=== PATIENT | female | born 1995 | race Caucasian/White ===

== ENCOUNTER → 2016-10-13 | Outpatient (CLI) | payer BC, MEDICAID ==
[~2016-10-13] MED LIST: HYDR-757 PO
--- NOTE | 2016-10-13 11:01 | Diagnostic Imaging Report ---
First trimester OB ultrasound. INDICATION: Dating. FINDINGS: There is a normal-appearing single intrauterine . An embryo is seen with cardiac activity at 153 beats per minute. The crown-rump length is at 11 weeks and 6 days. RILEY is 04/28/17. The provided LMP of 07/04/16 is inaccurate. IMPRESSION: Live single intrauterine . Dictated by: Dictated on workstation # [id number]
== END ==
LOC: RAD 10:12
PROVIDERS: ATTEND Family Medicine
DX: Z36 Encounter for antenatal screening of mother (principal); Z3A.11 11 weeks gestation of pregnancy
CPT/HCPCS: 76801

== ENCOUNTER 2016-10-31 16:00 | Emergency (ER) | payer MEDICAID ==
[~2016-10-31] VITALS: Ht 162.6 cm; Wt 59.9 kg
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
[2016-10-31] MEDS ORDERED: HYDR-757 PO (16:38)
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
[2016-10-31 16:56] VITALS: BP 106/93
[2016-10-31] MEDS ORDERED: HYDROcodone/APAP 5 MG/325 MG (LORTAB) TAB PO ONE (17:00)
== END 2016-10-31 16:53 | disposition home or self-care (01) ==
LOC: EDUNIT# 16:00 → ER 16:02
DX: S62.334A Displaced fracture of neck of fourth metacarpal bone, right hand, initial encounter for closed fracture (principal); S00.83XA Contusion of other part of head, initial encounter; Z3A.15 15 weeks gestation of pregnancy; Y04.0XXA Assault by unarmed brawl or fight, initial encounter; Y92.009 Unspecified place in unspecified non-institutional (private) residence as the place of occurrence of the external cause; Y99.8 Other external cause status
CPT/HCPCS: 29125; 73130

== ENCOUNTER → 2016-12-09 | Outpatient (CLI) | payer SELFPAY | DX: Z36 Encounter for antenatal screening of mother (principal); Z3A.19 19 weeks gestation of pregnancy ==

== ENCOUNTER → 2016-12-30 | Outpatient (CLI) | payer MEDICAID ==
--- NOTE | 2016-12-30 14:27 | Diagnostic Imaging Report ---
INDICATION: Followup spine, cord insertion, and four-chamber view. TECHNIQUE: Multiple real-time grayscale images were obtained over the gravid uterus. COMPARISON: 12/09/2016. FINDINGS: heart rate is 130 beats per minute. The placenta is anterior. No placenta previa. The lower portion of the placenta is 2.6 cm above the internal os. Normal amniotic fluid is seen. The cord insertion, the four-chamber view, and spine are better visualized at this time with no definite abnormality. IMPRESSION: Completed survey. Dictated by: Dictated on workstation # [id number]
== END ==
LOC: RAD 11:11
PROVIDERS: ATTEND Family Medicine
DX: Z36 Encounter for antenatal screening of mother (principal); Z3A.20 20 weeks gestation of pregnancy
CPT/HCPCS: 76816

== ENCOUNTER 2017-01-30 21:10 | Outpatient (CLI) | payer MEDICAID ==
[~2017-01-30] VITALS: Ht 165.1 cm; Wt 66.2 kg
[2017-01-30 21:28] VITALS: BP 119/68
[2017-01-30] MEDS ORDERED: PREN-142 PO (21:55)
--- NOTE | 2017-01-31 13:30 | Physician Query-Final Dx ---
SANIA HARRIS 01/31/17 1330: Clinic Account Progress/Dx Physician Query: Please give diagnosis Date of Service Jan 30, 2017 at 21:10 LENNIE SHEPHERD DO 02/08/17 0826: Clinic Account Progress/Dx DIAGNOSIS: Diagnosis 1. 27 wk GA 2. Decreased movement - reassuring NST SANIA HARRIS Jan 31, 2017 13:30 LENNIE SHEPHERD DO Feb 08, 2017 08:26
== END 2017-01-30 22:00 | disposition home or self-care (01) ==
LOC: WSo 21:10 → LDRP 21:11 → WSo 22:00
PROVIDERS: ATTEND Family Medicine
DX: O36.8120 Decreased fetal movements, second trimester, not applicable or unspecified (principal); Z3A.27 27 weeks gestation of pregnancy
CPT/HCPCS: 99212

== ENCOUNTER 2017-02-14 12:11 | Outpatient (CLI) | payer MEDICAID ==
[~2017-02-14] VITALS: Ht 165.1 cm; Wt 63.5 kg
[~2017-02-14 12:11] MED LIST changes: +PREN-142 PO
[2017-02-14 12:30] VITALS: BP 128/76
[2017-02-14] MEDS ORDERED: LACTATED RINGERS 1,000 ML IV ONE (12:45)
[2017-02-14] MEDS ORDERED: LOPERAMIDE 2 MG (IMODIUM) CAP PO NR (12:45)
[2017-02-14] MEDS ORDERED: ONDANSETRON 4 MG/2 ML (SDV) Z0FRAN IVP NR (12:45)
[2017-02-14 12:56] LABS: BILIRUBIN,URINE NEGATIVE (NEGATIVE); KETONES,URINE 3+ (NEGATIVE); LEUKOCYTE ESTERASE ,URINE 3+ (NEGATIVE); NITRITE,URINE NEGATIVE (NEGATIVE); PH,URINE 6 (5-9); PROTEIN,URINE NEGATIVE (NEGATIVE); UROBILINOGEN,URINE NORMAL (NORMAL)
[2017-02-14 13:00] VITALS: BP 107/57
[2017-02-14 13:08] LABS: SQUAMOUS EPITHELIAL CELL,UR 25-50 /HPF; WBC,URINE 25-50 /HPF
[2017-02-14 13:30] VITALS: BP 101/54
[2017-02-14 14:00] VITALS: BP 110/64
[2017-02-14 14:30] VITALS: BP 118/64
--- NOTE | 2017-02-15 13:04 | Physician Query-Final Dx ---
BRENTON BRYANT 02/15/17 1304: Clinic Account Progress/Dx Physician Query: Please give diagnosis Date of Service Feb 14, 2017 at 12:11 GEENA ESPINOSA MD 02/25/17 0759: Clinic Account Progress/Dx DIAGNOSIS: Diagnosis 1. Gastroenteritis, viral 2. IUP at 29 weeks, non labor BRENTON BRYANT Feb 15, 2017 13:04 GEENA ESPINOSA MD Feb 25, 2017 07:59
== END 2017-02-14 15:00 | disposition home or self-care (01) ==
LOC: LDRP 12:11 → WSo 12:11
PROVIDERS: ATTEND Family Medicine
DX: O98.513 Other viral diseases complicating pregnancy, third trimester (principal); A08.4 Viral intestinal infection, unspecified; Z3A.29 29 weeks gestation of pregnancy
CPT/HCPCS: 81000; 87088; 96361; 96374; 99213

== ENCOUNTER 2017-04-12 17:05 | Inpatient (IN) | payer MEDICAID ==
[~2017-04-12] VITALS: Ht 165.1 cm; Wt 69.9 kg
[2017-04-12] VITALS (10 sets, daily range): BP systolic 134–148; BP diastolic 87–92
[2017-04-12 17:36] LABS: BILIRUBIN,URINE NEGATIVE (NEGATIVE); KETONES,URINE 2+ (NEGATIVE); LEUKOCYTE ESTERASE ,URINE 3+ (NEGATIVE); NITRITE,URINE NEGATIVE (NEGATIVE); PH,URINE 6.5 (5-9); PROTEIN,URINE NEGATIVE (NEGATIVE); UROBILINOGEN,URINE NORMAL (NORMAL)
[2017-04-12] MEDS ORDERED: RANI-515 PO (17:39)
[2017-04-12] MEDS ORDERED: FERR-84 PO (17:39)
[2017-04-12 17:59] LABS: WBC,URINE 25-50 /HPF
[2017-04-12] MEDS ORDERED: INFLUENZA TRIvalent 2017-2018 0.5 ML/45 MCG SYR IM ONE (18:00)
[2017-04-12] MEDS ORDERED: cefTRIAXone 1 GM (ROCEPHIN) VIAL IM NR (18:15)
[2017-04-12] MEDS ORDERED: hydrOXYzine (VISTARIL) 25 MG CAP PO NR (18:15)
[2017-04-12] MEDS ORDERED: LIDOCAINE 1% INJ 20 ML (XYLOCAINE) VIAL IJ NR (18:15)
[2017-04-12] MEDS ORDERED: LACTATED RINGERS 1,000 ML IV ONE (19:50)
[2017-04-12 20:14] LABS: PROTEIN/CREATININE RATIO 0.17
[2017-04-12] MEDS: LACTATED RINGERS 1,000 ML IV SCH (20:15)
[2017-04-12] MEDS ORDERED: D5 LR IV SOLUTION 1,000 ML IV SCH (20:15)
--- OUTSIDE RECORDS SUMMARY | 2017-04-12 20:34 | XMS REPORT | Continuity of Care Document ---
Author Author [facility] Address Unknown Phone Unavailable Allergies Active Description Code Type Severity Reaction Onset Reported/Identified Relationship to Patient Clinical Status Yes tramadol Drug Allergy N/A N/A 06/07/2013 Medications Problems Date Dx Coded Attending Type Code Diagnosis Diagnosed By 08/26/2009 LENNIE SHEPHERD DO V20.2 WELL CHILD, ROUTINE 08/26/2009 V20.2 WELL CHILD, ROUTINE 08/26/2009 JAY CUMMINGS APRN V20.2 WELL CHILD, ROUTINE 08/26/2009 LENNIE SHEPHERD DO V20.2 WELL CHILD, ROUTINE 08/26/2009 TRINH TIERNEY APRN V20.2 WELL CHILD, ROUTINE 03/18/2010 LENNIE SHEPHERD DO V05.4 VARICELLA, CHICKENPOX 03/18/2010 V05.4 VARICELLA, CHICKENPOX 03/18/2010 JAY CUMMINGS APRN V05.4 VARICELLA, CHICKENPOX 03/18/2010 LENNIE SHEPHERD DO V05.4 VARICELLA, CHICKENPOX 03/18/2010 TRINH TIERNEY APRN V05.4 VARICELLA, CHICKENPOX 04/30/2010 LENNIE SHEPHERD DO V03.89 MENINGOCOCCAL VACCINE 04/30/2010 LENNIE SHEPHERD DO V05.8 GARDASIL 04/30/2010 LENNIE SHEPHERD DO V25.40 CONTRACEPTIVE SURVEILLANCE UNSPECIFIED 04/30/2010 LENNIE SHEPHERD DO V69.2 HIGH-RISK SEXUAL BEHAVIOR 04/30/2010 V03.89 MENINGOCOCCAL VACCINE 04/30/2010 V05.8 GARDASIL 04/30/2010 V25.40 CONTRACEPTIVE SURVEILLANCE UNSPECIFIED 04/30/2010 V69.2 HIGH-RISK SEXUAL BEHAVIOR 04/30/2010 JAY CUMMINGS APRN V03.89 MENINGOCOCCAL VACCINE 04/30/2010 JAY CUMMINGS APRN V05.8 GARDASIL 04/30/2010 JAY CUMMINGS APRN A V25.40 CONTRACEPTIVE SURVEILLANCE UNSPECIFIED 04/30/2010 JAY CUMMINGS APRN A V69.2 HIGH-RISK SEXUAL BEHAVIOR 04/30/2010 LENNIE SHEPHERD DO V03.89 MENINGOCOCCAL VACCINE 04/30/2010 LENNIE SHEPHERD DO K V05.8 GARDASIL 04/30/2010 LENNIE SHEPHERD DO K V25.40 CONTRACEPTIVE SURVEILLANCE UNSPECIFIED 04/30/2010 LENNIE SHEPHERD DO K V69.2 HIGH-RISK SEXUAL BEHAVIOR 04/30/2010 KELSY GAME PRESERVE MANAGER, TRINH R V03.89 MENINGOCOCCAL VACCINE 04/30/2010 KELSY GAME PRESERVE MANAGER, TRINH R V05.8 GARDASIL 04/30/2010 KELSY GAME PRESERVE MANAGER, TRINH R V25.40 CONTRACEPTIVE SURVEILLANCE UNSPECIFIED 04/30/2010 KELSY GAME PRESERVE MANAGER, TRINH R V69.2 HIGH-RISK SEXUAL BEHAVIOR 06/26/2010 LENNIE SHEPHERD DO V74.5 STD SCREEN 06/26/2010 V74.5 STD SCREEN 06/26/2010 JAY CUMMINGS APRN A V74.5 STD SCREEN 06/26/2010 LENNIE SHEPHERD DO V74.5 STD SCREEN 06/26/2010 INGA TIERNEY APRNINA R V74.5 STD SCREEN 07/01/2010 LENNIE SHEPHERD DO 300.4 MO DYSTHYMIC DISORDER 07/01/2010 300.4 MO DYSTHYMIC DISORDER 07/01/2010 JAY CUMMINGS APRN A 300.4 MO DYSTHYMIC DISORDER 07/01/2010 LENNIE SHEPHERD DO 300.4 MO DYSTHYMIC DISORDER 07/01/2010 TRINH TIERNEY APRN R 300.4 MO DYSTHYMIC DISORDER 07/16/2010 LENNIE SHEPHERD DO V25.49 SURVEILLANCE OF OTHER CONTRACEPTIVE METHOD 07/16/2010 V25.49 SURVEILLANCE OF OTHER CONTRACEPTIVE METHOD 07/16/2010 JAY CUMMINGS APRN V25.49 SURVEILLANCE OF OTHER CONTRACEPTIVE METHOD 07/16/2010 LENNIE SHEPHERD DO V25.49 SURVEILLANCE OF OTHER CONTRACEPTIVE METHOD 07/16/2010 TRINH TIERNEY APRN R V25.49 SURVEILLANCE OF OTHER CONTRACEPTIVE METHOD 07/31/2010 LENNIE SHEPHERD DO 296.90 MOOD DISORDER 07/31/2010 LENNIE SHEPHERD DO 780.79 MALAISE AND FATIGUE 07/31/2010 LENNIE SHEPHERD DO K 780.99 ANHEDONIA 07/31/2010 296.90 MOOD DISORDER 07/31/2010 780.79 MALAISE AND FATIGUE 07/31/2010 780.99 ANHEDONIA 07/31/2010 EMILIANO UGALDE, JAY A 296.90 MOOD DISORDER 07/31/2010 EMILIANO GAME PRESERVE MANAGER, JAY A 780.79 MALAISE AND FATIGUE 07/31/2010 EMILIANO UGALDE, JAY A 780.99 ANHEDONIA 07/31/2010 LENNIE SHEPHERD DO K 296.90 MOOD DISORDER 07/31/2010 LENNIE SHEPHERD DO K 780.79 MALAISE AND FATIGUE 07/31/2010 SHEPHERD VINNIE SANCHEZA K 780.99 ANHEDONIA 07/31/2010 KELSY UGALDE, TRINH R 296.90 MOOD DISORDER 07/31/2010 KELSY UGALDE, TRINH R 780.79 MALAISE AND FATIGUE 07/31/2010 KELSY UGALDE, TRINH R 780.99 ANHEDONIA 09/25/2010 LENNIE SHEPHERD DO V06.5 DT, TETANUS-DIPHTHERIA [Td] ,TDAP 09/25/2010 LENNIE SHEPHERD DO V70.0 GENERAL MEDICAL EXAM, ROUTINE, AT HEALTH CARE FACILITY 09/25/2010 V06.5 DT, TETANUS-DIPHTHERIA [Td] ,TDAP 09/25/2010 V70.0 GENERAL MEDICAL EXAM, ROUTINE, AT HEALTH CARE FACILITY 09/25/2010 JAY CUMMINGS APRN A V06.5 DT, TETANUS-DIPHTHERIA [Td] ,TDAP 09/25/2010 JAY CUMMINGS APRN A V70.0 GENERAL MEDICAL EXAM, ROUTINE, AT HEALTH CARE FACILITY 09/25/2010 LENNIE SHEPHERD DO V06.5 DT, TETANUS-DIPHTHERIA [Td] ,TDAP 09/25/2010 LENNIE SHEPHERD DO V70.0 GENERAL MEDICAL EXAM, ROUTINE, AT HEALTH CARE FACILITY 09/25/2010 INGA TIERNEY APRNINA R V06.5 DT, TETANUS-DIPHTHERIA [Td] ,TDAP 09/25/2010 KELSY UGALDE TRINH R V70.0 GENERAL MEDICAL EXAM, ROUTINE, AT HEALTH CARE FACILITY 09/29/2010 LENNIE SHEPHERD DO 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 09/29/2010 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 09/29/2010 JAY CUMMINGS APRN 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 09/29/2010 LENNIE SHEPHERD DO 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 09/29/2010 TRINH TIERNEY APRN 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 06/29/2011 LENNIE SHEPHERD DO V25.9 CONTRACEPTION MANAGEMENT 06/29/2011 LENNIE SHEPHERD DO V65.45 STD COUNSELING 06/29/2011 LENNIE SHEPHERD DO V72.31 VESSEL MANAGER EXAM, ROUTINE 06/29/2011 V25.9 CONTRACEPTION MANAGEMENT 06/29/2011 V65.45 STD COUNSELING 06/29/2011 V72.31 VESSEL MANAGER EXAM, ROUTINE 06/29/2011 JAY CUMMINGS APRN V25.9 CONTRACEPTION MANAGEMENT 06/29/2011 JAY CUMMINGS APRN V65.45 STD COUNSELING 06/29/2011 JAY CUMMINGS APRN V72.31 VESSEL MANAGER EXAM, ROUTINE 06/29/2011 LENNIE SHEPHERD DO V25.9 CONTRACEPTION MANAGEMENT 06/29/2011 LENNIE SHEPHERD DO V65.45 STD COUNSELING 06/29/2011 LENNIE SHEPHERD DO V72.31 VESSEL MANAGER EXAM, ROUTINE 06/29/2011 TRINH TIERNEY APRN V25.9 CONTRACEPTION MANAGEMENT 06/29/2011 TRINH TIERNEY APRN V65.45 STD COUNSELING 06/29/2011 TRINH TIERNEY APRN V72.31 VESSEL MANAGER EXAM, ROUTINE 12/28/2011 LENNIE SHEPHERD DO 466.0 ACUTE BRONCHITIS 12/28/2011 466.0 ACUTE BRONCHITIS 12/28/2011 JAY CUMMINGS APRN 466.0 ACUTE BRONCHITIS 12/28/2011 LENNIE SHEPHERD DO 466.0 ACUTE BRONCHITIS 12/28/2011 TRINH TIERNEY APRN 466.0 ACUTE BRONCHITIS 08/14/2012 LENNIE SHEPHERD DO 723.1 CERVICALGIA 08/14/2012 723.1 CERVICALGIA 08/14/2012 JAY CUMMINGS APRN 723.1 CERVICALGIA 08/14/2012 LENNIE SHEPHERD DO 723.1 CERVICALGIA 08/14/2012 TRINH TIERNEY APRN 723.1 CERVICALGIA 01/15/2013 V25.09 CONTRACEPTIVE COUNSELING - GENERAL 01/15/2013 JAY CUMMINGS APRN A V25.09 CONTRACEPTIVE COUNSELING - GENERAL 01/15/2013 LENNIE SHEPHERD DO V25.09 CONTRACEPTIVE COUNSELING - GENERAL 01/15/2013 TRINH TIERNEY APRN V25.09 CONTRACEPTIVE COUNSELING - GENERAL 02/16/2013 461.9 SINUSITIS ACUTE 02/16/2013 786.2 COUGH 02/16/2013 JAY CUMMINGS APRN A 461.9 SINUSITIS ACUTE 02/16/2013 JAY CUMMINGS APRN A 786.2 COUGH 02/16/2013 LENNIE SHEPHERD DO K 461.9 SINUSITIS ACUTE 02/16/2013 LENNIE SHEPHERD DO K 786.2 COUGH 02/16/2013 TRINH TIERNEY APRN R 461.9 SINUSITIS ACUTE 02/16/2013 TRINH TIERNEY APRN 786.2 COUGH 06/07/2013 JAY CUMMINGS APRN A V25.01 CONTRACEPTION - ORAL CONTRACEPTION 06/07/2013 LENNIE SHEPHERD DO V25.01 CONTRACEPTION - ORAL CONTRACEPTION 06/07/2013 TRINH TIERNEY APRN V25.01 CONTRACEPTION - ORAL CONTRACEPTION 09/13/2013 LENNIE SHEPHERD DO V65.42 COUNSELING - SMOKING CESSATION 09/13/2013 TRINH TIERNEY APRN V65.42 COUNSELING - SMOKING CESSATION 05/08/2014 TRINH TIERNEY APRN V74.1 TB SCREENING Procedures Code Description [place] [address] URINE TEST (IN-HOUSE) 06/07/2013 92822 URINE DRUG SCREEN (IN-HOUSE) 05/08/2014 48755 TB TEST INTRADERMAL 05/08/2014 Results Encounters ACCT No. Visit Date/Time Discharge Status Pt. Type Provider Facility Loc./Unit Complaint [id number] 05/08/2014 08:31:00 05/08/2014 23: 59:59 CLS Outpatient TRINH TIERNEY APRN [id number] 09/13/2013 09:23:00 09/13/2013 23: 59:59 CLS Outpatient LENNIE SHEPHERD DO [id number] 06/07/2013 15:57:00 06/07/2013 23: 59:59 CLS Outpatient JAY CUMMINGS APRN [id number] 08/14/2012 14:43:00 08/14/2012 23: 59:59 [facility] Outpatient LENNIE SHEPHERD DO [id number] 02/16/2013 13:38:00 Document Registration
[2017-04-13] VITALS (41 sets, daily range): BP systolic 116–189; BP diastolic 58–103
[2017-04-13] MEDS: LACTATED RINGERS 1,000 ML IV SCH (04:06)
[2017-04-13] MEDS ORDERED: OXYTOCIN/NORMAL SALINE 500 ML IV ONE (07:18)
[2017-04-13] MEDS ORDERED: NS (IVPB) 50 ML ONE (07:18)
[2017-04-13] MEDS ORDERED: AMPICILLIN 2000 MG INJECTION (IM/IV) ONE (07:18)
[2017-04-13] MEDS ORDERED: OXYTOCIN/NORMAL SALINE 500 ML IV SCH ×2 (07:56→12:55)
[2017-04-13] MEDS ORDERED: AMPICILLIN INJECTION 2,000 MG in NS (IVPB) 50 ML IV SCH (07:56)
[2017-04-13] MEDS ORDERED: BUTORPHANOL INJ 2 MG/ML (STADOL) VIAL IV PRN (08:00)
--- NOTE | 2017-04-13 08:00 | History & Physical-OB ---
OB - Chief Complaint & HPI Date/Time Date of Admission: Date of Admission: Apr 12, 2017 at 19:15 Time Seen by Provider: 07:30 Chief Complaint/History OB-Reason for Admission/Chief: Onset of Labor Hx : 2 Hx Para: 0 Expected Date of Delivery: Apr 30, 2017 Gestational Age in Weeks: 37 Gestational Age in Days: 6 Admission Nurse Assessment Rev: Yes History of Labs GBS positive Allergies and Home Medications Allergies Coded Allergies: No Known Drug Allergies (Unverified , 06/11/16) Home Medications Ferrous Sulfate 325 Mg Tablet, 325 MG PO DAILY, (Reported) Vit No.124/Iron/FA 1 Each Tablet, 1 EACH PO DAILY, (Reported) Ranitidine HCl 150 Mg Tablet, 150 MG PO DAILY, (Reported) OB - History Hx of Present Care: Yes Ultrasounds: Normal mid trimester US Obstetrical Complications: None Medical Complications: None Obstetrical History Hx : 2 Hx Para: 0 Hx Total # of Abortions (Spona: 1 Delivery History Adverse Rxn to Tranfusion: No Patient Past Medical History No chronic medical problems Social History/Family History Recent Infectious Disease Expo: No Alcohol Use: Denies Use Recreational Drug Use: No Immunizations Hepatitis A: No Hepatitis B: No OB - Admission Exam Physical Exam Vitals: Vital Signs 04/13/17 03:30 Temp 97.9 Pulse 72 Resp 18 B/P (MAP) 116/58 O2 Delivery Room Air HEENT: Moist Membranes Heart: Rhythm Normal Abdomen: Gravid Cervical Dilatation: 5cm Effacement: 75% Station: -3 Membranes: Intact Heart Rate: 130's Accelerations: Accelerations Present Short Term Variability: Present Denture Model Maker Variability: Average (6-25) Contractions on Admission: < 5 Minutes Apart Intensity: Mild Labs Laboratory Tests Test 04/12/17 17:10 Range/Units Urine Color YELLOW Urine Clarity SLIGHTLY CLOUDY Urine pH 6.5 5-9 Urine Specific [place]entry 1.010 L 1.016-1.022 Urine Protein 15 H 6-12 MG/DL Urine Glucose (UA) NEGATIVE NEGATIVE Urine Ketones 2+ H NEGATIVE Urine Nitrite NEGATIVE NEGATIVE Urine Bilirubin NEGATIVE NEGATIVE Urine Urobilinogen NORMAL NORMAL MG/DL Urine Leukocyte Esterase 3+ H NEGATIVE Urine RBC (Auto) NEGATIVE NEGATIVE Urine RBC NONE /HPF Urine WBC 25-50 H /HPF Urine Squamous Epithelial Cells 10-25 H /HPF Urine Crystals NONE /LPF Urine Bacteria MODERATE H /HPF Urine Casts NONE /LPF Urine Mucus SMALL H /LPF Urine Culture Indicated YES Urine Creatinine 90 30-125 MG/DL Urine Protein/Creatinine Ratio 0.17 Urine Opiates Screen NEGATIVE NEGATIVE Urine Oxycodone Screen NEGATIVE NEGATIVE Urine Methadone Screen NEGATIVE NEGATIVE Urine Propoxyphene Screen NEGATIVE NEGATIVE Urine Barbiturates Screen NEGATIVE NEGATIVE Ur Tricyclic Antidepressants Screen NEGATIVE NEGATIVE Urine Phencyclidine Screen NEGATIVE NEGATIVE Urine Amphetamines Screen NEGATIVE NEGATIVE Urine Methamphetamines Screen NEGATIVE NEGATIVE Urine Benzodiazepines Screen NEGATIVE NEGATIVE Urine Cocaine Screen NEGATIVE NEGATIVE Urine Cannabinoids Screen NEGATIVE NEGATIVE OB - Assessment/Plan/Diagnosis Assessment Assessment: active labor (early at 37w6d gestation) Plan Induction Method: AROM (after doses of ampicillin) GEENA ESPINOSA MD Apr 13, 2017 08:00
[2017-04-13] MEDS ORDERED: CATHETER FLUSH 10 ML SYR IV PRN (08:15)
[2017-04-13 08:56] LABS: BASOPHILS % (AUTO) 0 % (0-10); EOSINOPHILS % (AUTO) 0 % (0-10); LYMPHOCYTES # (AUTO) 1.2 X 10^3 (1.0-4.0); LYMPHOCYTES % (AUTO) 13 % (12-44); MEAN CORPUSCULAR HEMOGLOBIN 28 PG (25-34); MEAN CORPUSCULAR HGB CONC 33 G/DL (32-36); MEAN CORPUSCULAR VOLUME 86 FL (80-99); MEAN PLATELET VOLUME 9.8 FL (7.4-10.4); MONOCYTES # (AUTO) 0.5 X 10^3 (0.0-1.0); MONOCYTES % (AUTO) 5 % (0-12); NEUTROPHILS # (AUTO) 7.6 X 10^3 (1.8-7.8); NEUTROPHILS % (AUTO) 82 % (42-75); PLATELET COUNT 194 10^3/uL (130-400); RED BLOOD COUNT 3.89 10^6/uL (4.35-5.85); RED CELL DISTRIBUTION WIDTH 18.3 % (10.0-14.5); WHITE BLOOD COUNT 9.3 10^3/uL (4.3-11.0)
[2017-04-13] MEDS ORDERED: SUFENTA 0.6MCG/ML BUPIVA 0.125 100 ML ONE (10:05)
[2017-04-13] MEDS ORDERED: fentaNYL INJECTION 100 MCG/2 ML AMP ONE (10:37)
[2017-04-13] MEDS ORDERED: LIDOCAINE PF 2% 5 ML (XYLOCAINE) VIAL ONE (10:37)
[2017-04-13] MEDS ORDERED: BUPIVACAINE 0.25% 30 ML (SENSORCAINE) VIAL ONE (10:37)
[2017-04-13] MEDS ORDERED: AMPICILLIN INJECTION 1,000 MG in NS (IVPB) 50 ML IV SCH (12:00)
[2017-04-13] MEDS ORDERED: LIDOCAINE/EPI 2% 1:200,00 (XYLOCAINE) 10 ML VIAL ONE (12:02)
[2017-04-13] MEDS ORDERED: LIDOCAINE/EPI 2% 1:100,00 (XYLOCAINE) 20 ML VIAL INJ ONE (12:30)
--- NOTE | 2017-04-13 12:55 | OB Labor & Delivery Record ---
L&D History Date of Service Date of Service: Apr 13, 2017 History Expected Date of Delivery: Apr 30, 2017 Gestational Age in Weeks: 37 Hx : 2 Hx Para: 1 Complications Events: Routine care Operative Indications (Cesarea: N/A-Vaginal Delivery Intrapartal Events: None Other Complications GBS positive L&D Stage1 Stage One Onset of Labor - Date: Apr 13, 2017 Onset of Labor - Time: 01:00 Monitors and Tracing Monitor Mode: Internal Heart Rate: 145 Monitor Accelerations: Uniform Monitor Decelerations: Early Station: -1 Fpc Variability: Average (6-10) Short Term Variability: Present Presentation: Vertex Vital Signs VS - Last 72 Hours, by Label 04/12/17 04/12/17 04/12/17 04/12/17 17:10 17:30 18:00 18:02 Temp 97.6 Pulse 85 71 74 85 Resp 18 18 18 18 B/P (MAP) 134/87 136/87 138/89 142/92 O2 Delivery Room Air Room Air Room Air Room Air 04/12/17 04/12/17 04/12/17 04/12/17 18:30 18:31 18:45 19:06 Pulse 72 73 70 92 Resp 18 18 18 18 B/P (MAP) 142/90 148/90 145/87 141/92 O2 Delivery Room Air Room Air Room Air Room Air 04/12/17 04/12/17 04/13/17 04/13/17 19:16 20:00 00:20 01:00 Temp 97.8 Pulse 82 87 75 Resp 18 18 18 B/P (MAP) 135/91 138/92 138/95 O2 Delivery Room Air Room Air Room Air 04/13/17 04/13/17 04/13/17 04/13/17 03:30 07:45 08:00 08:15 Temp 97.9 98.5 Pulse 72 72 86 90 Resp 18 18 18 18 B/P (MAP) 116/58 141/92 132/81 128/81 O2 Delivery Room Air Room Air Room Air Room Air 04/13/17 04/13/17 04/13/17 04/13/17 08:30 08:45 09:00 09:15 Pulse 93 89 81 90 Resp 18 18 18 18 B/P (MAP) 132/85 134/91 139/96 136/76 O2 Delivery Room Air Room Air Room Air Room Air 04/13/17 04/13/17 04/13/17 04/13/17 09:30 09:45 10:00 10:15 Pulse 83 82 77 Resp 18 18 18 18 B/P (MAP) 140/83 136/91 142/103 145/95 O2 Delivery Room Air Room Air Room Air Room Air Rupture of Membranes Spontaneous Ruture of Membrane: No Amniotic Membrane Rupture Time: 11:30 Amniotic Membrane Fluid Desc.: Clear Induction/Anesthesia Epidural Cath Placement - Time: 11:00 L&D Stage2 Stage Two Stage II Date: Apr 13, 2017 Stage II Time: 12:15 Monitors and Tracing Monitor Mode: Internal Heart Rate: 145 Monitor Accelerations: Uniform Monitor Decelerations: Variable Nutrition Services Associate Variability: Average (6-10) Short Term Variability: Present Position: Right Occiput Anterior Presentation: Vertex Signs of Distress by FHT Signs of Distress no Cord Descript/Complications Cord Vessel Description: 3 Vessels Delivery Type Infant Delivery Method: Spontaneous Vaginal Anterior Shoulder: Right Episiotomy/Perineal Laceration Laceraction(s)/Extensions: Yes Episiotomy Description: Midline Sutures Used: Vicryl Condition of Delivery 1 minute Comment: 7 5 minute Comment: 9 Condition of Infant Condition of : Living Exam: No Observed Abnormalities Resuscitation Resuscitation: N/A - Spontaneous Resp L&D Stage3 Stage Three Stage III Date: Apr 13, 2017 Stage III Time: 12:18 Pictocin Pitocin Administration mu/min: 12 Pitocin ml/hr: 12 Pitocin Administration Comment: 0935 pitocin increased Placenta Delivery Placenta Delivery: Spontaneous Delivery Summary Summary Estimated blood loss (mL): 350 Condition of Delivery Examined: Cervix Examined Post Hemorrhage: No GEENA ESPINOSA MD Apr 13, 2017 12:55
[2017-04-13] MEDS ORDERED: HYDROcodone/APAP 5 MG/325 MG (LORTAB) TAB PO PRN (13:00)
[2017-04-13] MEDS ORDERED: MEASLES,MUMPS,RUBELLA 1 EA INJ SQ ONE (13:00)
[2017-04-13] MEDS ORDERED: LIDOCAINE/EPI 1%-1:200,000 (XYLOCAINE) 10 ML VIAL INJ ONE (13:00)
[2017-04-13] MEDS ORDERED: WITCH HAZEL(TUCKS) 40 EA JAR TOP PRN (13:00)
[2017-04-13] MEDS ORDERED: TETANUS,DIPTH,PERTUSS P/F (BOOSTRIX) 0.5 ML VIAL IM ONE (13:00)
[2017-04-13] MEDS ORDERED: BENZOCAINE/MENTHOL (DERMOPLAST) 56 ML CAN TP PRN (13:00)
[2017-04-13] MEDS: IBUPROFEN 600 MG (MOTRIN) TAB PO SCH ×3 (13:35→23:45)
[2017-04-13] MEDS ORDERED: LACTATED RINGERS 1,000 ML IV ONE (14:10)
[2017-04-13] MEDS: CATHETER FLUSH 10 ML SYR IV SCH ×2 (14:12→23:45)
[2017-04-13] MEDS ORDERED: EPIDURAL (SUFENTA 0.6MCG/ML BUPIVA 0.125%) 100 ML BAG EPI SCH (14:15)
[2017-04-14 04:00] VITALS: BP 101/61
[2017-04-14] MEDS: IBUPROFEN 600 MG (MOTRIN) TAB PO SCH ×4 (06:00→23:54)
[2017-04-14 06:20] LABS: BASOPHILS % (AUTO) 0 % (0-10); EOSINOPHILS # (AUTO) 0.1 10^3/uL (0.0-0.3); EOSINOPHILS % (AUTO) 1 % (0-10); LYMPHOCYTES # (AUTO) 2.1 X 10^3 (1.0-4.0); LYMPHOCYTES % (AUTO) 23 % (12-44); MEAN CORPUSCULAR HGB CONC 33 G/DL (32-36); MEAN CORPUSCULAR VOLUME 87 FL (80-99); MEAN PLATELET VOLUME 9.5 FL (7.4-10.4); MONOCYTES # (AUTO) 0.5 X 10^3 (0.0-1.0); MONOCYTES % (AUTO) 6 % (0-12); NEUTROPHILS # (AUTO) 6.3 X 10^3 (1.8-7.8); NEUTROPHILS % (AUTO) 70 % (42-75); RED CELL DISTRIBUTION WIDTH 18.3 % (10.0-14.5)
[2017-04-14 06:22] LABS: MEAN CORPUSCULAR HEMOGLOBIN 28 PG (25-34); RED BLOOD COUNT 2.78 10^6/uL (4.35-5.85); WHITE BLOOD COUNT 9.9 10^3/uL (4.3-11.0)
[2017-04-14 06:23] LABS: PLATELET COUNT 150 10^3/uL (130-400)
--- NOTE | 2017-04-14 07:18 | Progress Note (SOAP) ---
Subjective Date Seen by Provider: Apr 14, 2017 Time Seen by Provider: 07:15 Subjective/Events-last exam Slept well throughout the night. No significant vaginal bleeding following . Objective Exam Vital Signs Date Time Temp Pulse Resp B/P (MAP) Pulse Ox O2 Delivery O2 Flow Rate FiO2 04/13/17 18:46 98.3 100 18 136/88 99 Room Air 04/13/17 13:34 99 18 139/81 Room Air 04/13/17 13:19 98.2 94 18 137/77 Room Air 04/13/17 13:05 98.4 101 18 135/72 Room Air 04/13/17 12:49 98.8 110 18 151/78 Room Air 04/13/17 12:34 97.7 100 18 148/81 Room Air 04/13/17 12:20 103 18 154/80 Room Air 04/13/17 12:15 125 18 96 Room Air 04/13/17 12:00 118 18 129/98 100 Room Air 04/13/17 11:45 77 18 150/88 100 Room Air 04/13/17 11:42 86 18 142/97 100 Room Air 04/13/17 11:39 74 18 174/97 100 Room Air 04/13/17 11:36 81 18 145/82 100 Room Air 04/13/17 11:33 66 18 142/80 100 Room Air 04/13/17 11:30 82 18 140/84 100 Room Air 04/13/17 11:27 97 18 137/78 100 Room Air 04/13/17 11:24 73 18 141/74 100 Room Air 04/13/17 11:21 90 18 189/98 100 Room Air 04/13/17 11:18 70 18 145/82 100 Room Air 04/13/17 11:15 75 18 147/80 100 Room Air 04/13/17 11:11 93 18 176/96 100 Room Air 04/13/17 11:08 88 18 172/102 100 Room Air 04/13/17 11:05 111 18 138/84 100 Room Air 04/13/17 11:00 97.7 80 18 137/79 100 Room Air 04/13/17 10:55 104 18 151/94 100 Room Air 04/13/17 10:50 96 18 179/96 100 Room Air 04/13/17 10:45 86 18 160/88 Room Air 04/13/17 10:30 80 18 131/66 Room Air 04/13/17 10:15 77 18 145/95 Room Air 04/13/17 10:00 18 142/103 Room Air 04/13/17 09:45 82 18 136/91 Room Air 04/13/17 09:30 83 18 140/83 Room Air 04/13/17 09:15 90 18 136/76 Room Air 04/13/17 09:00 81 18 139/96 Room Air 04/13/17 08:45 89 18 134/91 Room Air 04/13/17 08:30 93 18 132/85 Room Air 04/13/17 08:15 90 18 128/81 Room Air 04/13/17 08:00 98.5 86 18 132/81 Room Air 04/13/17 07:45 72 18 141/92 Room Air Capillary Refill : General Appearance: No Apparent Distress Respiratory: Lungs Clear Cardiovascular: Regular Rate, Rhythm Gastrointestinal: soft (with uterus firm) Results Lab Laboratory Tests 04/13/17 08:46: White Blood Count 9.3, Red Blood Count 3.89L, Hemoglobin 11.0L, Hematocrit 34L, Mean Corpuscular Volume 86, Mean Corpuscular Hemoglobin 28, Mean Corpuscular Hemoglobin Concent 33, Red Cell Distribution Width 18.3H, Platelet Count 194, Mean Platelet Volume 9.8, Neutrophils (%) (Auto) 82H, Lymphocytes (%) (Auto) 13 , Monocytes (%) (Auto) 5, Eosinophils (%) (Auto) 0, Basophils (%) (Auto) 0, Neutrophils # (Auto) 7.6, Lymphocytes # (Auto) 1.2, Monocytes # (Auto) 0.5, Eosinophils # (Auto) 0.0, Basophils # (Auto) 0.0 04/14/17 05:40: White Blood Count 9.9, Red Blood Count 2.78L, Hemoglobin 7.9#L, Hematocrit 24L, Mean Corpuscular Volume 87, Mean Corpuscular Hemoglobin 28, Mean Corpuscular Hemoglobin Concent 33, Red Cell Distribution Width 18.3H, Platelet Count 150, Mean Platelet Volume 9.5, Neutrophils (%) (Auto) 70, Lymphocytes (%) (Auto) 23, Monocytes (%) (Auto) 6, Eosinophils (%) (Auto) 1, Basophils (%) (Auto) 0, Neutrophils # (Auto) 6.3, Lymphocytes # (Auto) 2.1, Monocytes # (Auto) 0.5, Eosinophils # (Auto) 0.1, Basophils # (Auto) 0.0 Microbiology 04/12/17 Urine Culture - Preliminary, Resulted Assessment/Plan Assessment/Plan Assess & Plan/Chief Complaint 1. S/P day 1 -routine PP care orders -add on iron to medication regimen. Clinical Quality Measures DVT/VTE Risk/Contraindication: Risk Factor Score Per Nursin RFS Level Per Nursing on Admit: 1=Low/No VTE PPX GEENA ESPINOSA MD Apr 14, 2017 07:18
[2017-04-14] MEDS ORDERED: DOCUSATE SODIUM 100 MG (COLACE) CAP PO ONE (07:47)
[2017-04-14 08:00] VITALS: BP 125/87
[2017-04-14] MEDS: FERROUS SULF 325 MG (IRON) TAB PO SCH (08:02)
--- NOTE | 2017-04-14 08:23 | Anesthesia-Regional Post-Op ---
Regional Patient Condition Mental Status: Alert, Oriented x3 Circulation: Same as Pre-Op Headache: Absent Sensation: Full Recovery Motor Block: Absent Post Op Complications Complications None Follow Up Care/Instructions Patient Instructions None needed. Anesthesia/Patient Condition Patient is doing well, no complaints, stable vital signs, no apparent adverse anesthesia problems. She had a precipitous labor and the labor epidural did not get as much relief of pain as typical. I explained to her the reasons and she understood. YNES SOUZA DO Apr 14, 2017 08:23
[2017-04-14 11:47] VITALS: BP 131/84
[2017-04-14 17:35] VITALS: BP 133/84
[2017-04-14] MEDS: DOCUSATE SODIUM 100 MG (COLACE) CAP PO SCH (21:30)
[2017-04-14 23:54] VITALS: BP 135/86
[2017-04-15 05:49] VITALS: BP 124/76
[2017-04-15] MEDS: IBUPROFEN 600 MG (MOTRIN) TAB PO SCH ×2 (05:49→12:05)
--- NOTE | 2017-04-15 07:41 | Discharge Summary ---
Diagnosis/Chief Complaint Date of Admission Apr 13, 2017 at 07:37 Date of Discharge April 15, 2017 Admission Diagnosis Admission Diagnosis 1. Intrauterine at 37 weeks 6 days gestation Discharge Diagnosis 1. Intrauterine at 37 weeks 6 days gestation Chief Complaint/HPI Chief Complaint/HPI 22-year-old 2 term 1 L1 female who initially presented to labor and delivery during the late p.m. of April 12 with uterine contractions. Patient was monitored throughout the fashion editor of April 13 and she was noted to dilate to 5 cm despite resting and IV fluid rehydration. She was noted to be GBS positive from clinic at 36 weeks vaginal swab. With membranes intact she did receive ampicillin protocol once it was determined she would be admitted. Discharge Summary-OBS Procedures 1. Epidural per anesthesia 2. Spontaneous vaginal delivery 3. Repair of midline episiotomy Discharge Physical Examination Allergies: Coded Allergies: No Known Drug Allergies (Unverified , 06/11/16) Vitals & I&Os Vital Sign - Last 12Hours Date Time Temp Pulse Resp B/P (MAP) Pulse Ox O2 Delivery O2 Flow Rate FiO2 04/15/17 05:49 98.0 70 16 124/76 Room Air 04/14/17 23:54 98 General Appearance: No Acute Distress HEENT: Mucous Memb Moist/[place] Respiratory: Clear to Auscultation Abdominal: Soft (with uterus firm) Hospital Course at 1145 on April 13 she underwent amniotomy after she had received 2 doses of ampicillin. Fluid was noted to be clear. She quickly went on to completion and delivered over a midline episiotomy at 1215 a term viable female. Delivery was accomplished spontaneous vaginal without operative delivery. Her Apgars were noted to be 7 at 1 minute and 9 at 5 minutes. Episiotomy was repaired with 3-0 Vicryl without difficulty. See labor and delivery summary for full details. Following delivery she underwent routine care orders. She had no complications during the remainder of hospital stay. She had hemoglobin in the morning of April 14 of 7.9 compared to 11.0 on admission. She was without dizziness upon standing. She had no complaints. She tolerated regular diet during the course of her stay. She was felt ready for dismissal on the morning of April 15, 2017. She will follow-up with myself in 6 weeks at [facility]. Labs Microbiology 04/12/17 Urine Culture - Preliminary, Resulted Discharge Instructions to patient/family Please see electronic discharge instructions given to patient. Discharge Medications Reviewed and agree with Discharge Medication list on patient's Discharge Instruction sheet Clinical Quality Measures DVT/VTE Risk/Contraindication: Risk Factor Score Per Nursin RFS Level Per Nursing on Admit: 1=Low/No VTE PPX GEENA ESPINOSA MD Apr 15, 2017 07:41
--- NOTE | 2017-04-15 07:43 | Discharge Inst-Women's Service ---
Discharge Inst-Women's Serv Depart Medication/Instructions New, Converted or Re-Newed RX: Other Consults/Follow Up Additional Follow Up: Yes (with Dr Espinosa at [facility] in 6 weeks.) Activity Activity: Activity as Tolerated Driving Instructions: You May Drive Nothing Inside Vagina: No [place] (6 weeks) Diet Discharge Diet: Regular Diet Return to The Hospital For: as below Symptoms to Report to : Swelling Increased, Bleeding Excessive, Pain Increased, Fever Over 101 Degrees F, Vaginal Discharge Foul For Any Problems or Questions: Contact Your Physician, Go to Emergency Room GEENA ESPINOSA MD Apr 15, 2017 07:43
[2017-04-15] MEDS: FERROUS SULF 325 MG (IRON) TAB PO SCH (10:26)
[2017-04-15] MEDS: DOCUSATE SODIUM 100 MG (COLACE) CAP PO SCH (10:26)
[2017-04-15 10:28] VITALS: BP 143/94
[2017-04-15 12:06] VITALS: BP 133/93
[2017-04-15 13:10] VITALS: BP 133/93
--- OUTSIDE RECORDS SUMMARY | 2017-04-18 10:23 | XMS REPORT ---
Author Author GEENA ESPINOSA Organization [facility] Address [address] [place] [address] Care Team Providers Care Lead Nuclear Medicine Technologist Name Role Phone GEENA ESPINOSA Unavailable PROBLEMS Type Condition ICD9-CM Code ALS94-ND Code Onset Dates Condition Status SNOMED Code Problem Cervicalgia M54.2 Active 1726788976632 Problem Trauma in childhood T14.90XA Active 850653366 Problem Atypical squamous cells of undetermined significance on cytologic smear of cervix (ASC-US) R87.610 Active 729893111 Problem Anemia affecting , first trimester O99.011 Active 72623019 Problem Counseling on substance use and abuse Z71.89 Active 073260807 Problem care, subsequent in second trimester Z34.82 Active 636501865 Problem Low TSH level R94.6 Active 740010059 ALLERGIES No Information SOCIAL HISTORY Never Assessed PLAN OF CARE VITAL SIGNS MEDICATIONS Unknown Medications RESULTS No Results PROCEDURES No Known procedures IMMUNIZATIONS No Known Immunizations MEDICAL (GENERAL) HISTORY Type Description Date Medical History denies
--- OUTSIDE RECORDS SUMMARY | 2017-04-18 10:24 | XMS REPORT | Continuity of Care Document ---
Author Author Formerly [facility] Address Unknown Phone Unavailable Allergies Active Description [...] K V69.2 HIGH-RISK SEXUAL BEHAVIOR 04/30/2010 KELSY GRAPHITE PAN DRIER TENDER, TRINH R V03.89 MENINGOCOCCAL VACCINE 04/30/2010 KELSY GRAPHITE PAN DRIER TENDER, TRINH R V05.8 GARDASIL 04/30/2010 KELSY GRAPHITE PAN DRIER TENDER, TRINH R V25.40 CONTRACEPTIVE SURVEILLANCE UNSPECIFIED 04/30/2010 KELSY GRAPHITE PAN DRIER TENDER, TRINH R V69.2 HIGH-RISK SEXUAL BEHAVIOR 06/26/2010 [...] JAY A 296.90 MOOD DISORDER 07/31/2010 EMILIANO GRAPHITE PAN DRIER TENDER, JAY A 780.79 MALAISE AND FATIGUE 07/31/2010 [...] STD COUNSELING 06/29/2011 LENNIE SHEPHERD DO V72.31 OFFICE CLIN ASST EXAM, ROUTINE 06/29/2011 V25.9 CONTRACEPTION MANAGEMENT 06/29/2011 V65.45 STD COUNSELING 06/29/2011 V72.31 OFFICE CLIN ASST EXAM, ROUTINE 06/29/2011 JAY CUMMINGS APRN V25.9 CONTRACEPTION MANAGEMENT 06/29/2011 JAY CUMMINGS APRN V65.45 STD COUNSELING 06/29/2011 JAY CUMMINGS APRN V72.31 OFFICE CLIN ASST EXAM, ROUTINE 06/29/2011 LENNIE SHEPHERD DO V25.9 CONTRACEPTION MANAGEMENT 06/29/2011 LENNIE SHEPHERD DO V65.45 STD COUNSELING 06/29/2011 LENNIE SHEPHERD DO V72.31 OFFICE CLIN ASST EXAM, ROUTINE 06/29/2011 TRINH TIERNEY APRN V25.9 CONTRACEPTION MANAGEMENT 06/29/2011 TRINH TIERNEY APRN V65.45 STD COUNSELING 06/29/2011 TRINH TIERNEY APRN V72.31 OFFICE CLIN ASST EXAM, ROUTINE 12/28/2011 LENNIE SHEPHERD DO 466.0 [...] Procedures Code [place] [address] URINE TEST (IN-HOUSE) 06/07/2013 92157 URINE DRUG SCREEN (IN-HOUSE) 05/08/2014 45352 TB TEST INTRADERMAL 05/08/2014 Results Encounters ACCT No. Visit Date/Time Discharge Status Pt. Type Provider Facility Loc./Unit Complaint [id number] 05/08/2014 08:31:00 05/08/2014 23: 59:59 CLS Outpatient TRINH TIERNEY APRN [id number] 09/13/2013 09:23:00 09/13/2013 23: 59:59 CLS Outpatient LENNIE SHEPHERD DO [id number] 06/07/2013 15:57:00 06/07/2013 23: 59:59 CLS Outpatient JAY CUMMINGS APRN [id number] 08/14/2012 14:43:00 08/14/2012 23: 59:59 [facility] Outpatient LENNIE SHEPHERD DO [id number] 02/16/2013 13:38:00 Document Registration
== END 2017-04-15 13:10 | disposition home or self-care (01) | DRG 775 ==
LOC: LDRP 17:05 → WSo 17:08 → UNDOADMOB 19:15 → LDRP 19:15 → INTOOBSV 04-13 07:37 → OBSVTOIN 04-13 07:37 → LDRP 04-13 13:59 → UNDODISIN 04-15 13:10 → EDSTATUS 04-18 10:18
PROVIDERS: ADMIT Family Medicine; ATTEND Family Medicine
PROC: 0W8NXZZ Division of Female Perineum, External Approach (ICD-10-PCS; principal; 2017-04-13)
PROC: 10E0XZZ Delivery of Products of Conception, External Approach (ICD-10-PCS; 2017-04-13)
DX: O99.824 Streptococcus B carrier state complicating childbirth (principal); Z37.0 Single live birth; Z3A.37 37 weeks gestation of pregnancy; Z23 Encounter for immunization
CPT/HCPCS: 36415; 80306; 81000; 82570; 84156; 85025; 86850; 86900; 86901; 87088; 88307; 99211; 99212; G0378

== ENCOUNTER 2019-04-14 19:43 | Inpatient (IN) | payer MEDICAID ==
[~2019-04-14] VITALS: Ht 165.1 cm; Wt 75.0 kg
[2019-04-14] VITALS (15 sets, daily range): BP systolic 121–179; BP diastolic 70–123
[~2019-04-14 19:43] MED LIST changes: +FERR-84 PO; +HYDR-4226 PO; -HYDR-757 PO; +RANI-515 PO
--- NOTE | 2019-04-14 19:48 | NUR ---
MARILEE CLINE presented to unit via from ED, accompanied by HER MOTHER, with c/o LEAKAGE OF FLUID SINCE 1200. MARILEE CLINE weighed, gowned, voided, and to bed. EFHM and TOCO applied, VS taken. MARILEE CLINE oriented to bed controls, call light, TV, heat, and A/C controls.
[2019-04-14] MEDS ORDERED: AMPICILLIN FOR IV USE 2,000 MG VIAL ONE (20:00)
[2019-04-14] MEDS ORDERED: D5 LR IV SOLUTION 1,000 ML IV ONE (20:00)
[2019-04-14] MEDS ORDERED: WATER (STERILE) FOR INJECTION 10 ML ONE (20:02)
[2019-04-14] MEDS ORDERED: D5 LR IV SOLUTION 1,000 ML IV SCH (21:10)
[2019-04-14] MEDS ORDERED: AMPICILLIN FOR IV USE 2,000 MG in WATER (STERILE) FOR INJECTION 14.8 ML IV SCH (21:10)
[2019-04-14] MEDS ORDERED: MINERAL OIL CONCENTRATE 99.9% 15 ML UDC TOP PRN (21:15)
[2019-04-14] MEDS ORDERED: MEPIVACAINE (CARBOCAINE) 2% 50 ML VIAL INJ PRN (21:15)
[2019-04-14 21:20] LABS: BASOPHILS % (AUTO) 0 % (0-10); EOSINOPHILS # (AUTO) 0.1 10^3/uL (0.0-0.3); EOSINOPHILS % (AUTO) 0 % (0-10); HEMATOCRIT 30 % (35-52); HEMOGLOBIN 9.8 G/DL (11.5-16.0); LYMPHOCYTES # (AUTO) 2.5 X 10^3 (1.0-4.0); LYMPHOCYTES % (AUTO) 19 % (12-44); MEAN CORPUSCULAR HEMOGLOBIN 28 PG (25-34); MEAN CORPUSCULAR HGB CONC 33 G/DL (32-36); MEAN CORPUSCULAR VOLUME 85 FL (80-99); MEAN PLATELET VOLUME 10.6 FL (7.4-10.4); MONOCYTES # (AUTO) 0.9 X 10^3 (0.0-1.0); MONOCYTES % (AUTO) 7 % (0-12); NEUTROPHILS # (AUTO) 9.8 X 10^3 (1.8-7.8); NEUTROPHILS % (AUTO) 74 % (42-75); PLATELET COUNT 229 10^3/uL (130-400); RED CELL DISTRIBUTION WIDTH 14.1 % (10.0-14.5); WHITE BLOOD COUNT 13.3 10^3/uL (4.3-11.0)
[2019-04-14] MEDS ORDERED: CATHETER FLUSH 10 ML SYR IV SCH (22:00)
[2019-04-14] MEDS ORDERED: fentaNYL INJECTION 100 MCG/2 ML AMP ONE (23:37)
[2019-04-14] MEDS ORDERED: SUFENTA 0.6MCG/ML BUPIVA 0.125 0 ML ONE (23:41)
[2019-04-14] MEDS ORDERED: ONDANSETRON 4 MG/2 ML (SDV) Z0FRAN ONE (23:41)
--- NOTE | 2019-04-14 23:57 | History & Physical-OB ---
OB - Chief Complaint & HPI Date/Time Date of Admission: Date of Admission: Apr 14, 2019 at 19:45 Date seen by a Provider: Apr 14, 2019 Time Seen by a Provider: 11:50 Chief Complaint/History OB-Reason for Admission/Chief: Rupture of Membranes Hx : 2 Hx Para: 1 Expected Date of Delivery: Apr 28, 2019 Gestational Age in Weeks: 38 Gestational Age in Days: 0 Admission Nurse Assessment Rev: Yes History of Labs GBS positive vaginal culture at 36 weeks. Allergies and Home Medications Allergies Coded Allergies: No Known Drug Allergies (Unverified , 06/11/16) Home Medications Ferrous Sulfate 325 Mg Tablet, 325 MG PO DAILY, (Reported) Vit No.124/Iron/FA 1 Each Tablet, 1 EACH PO DAILY, (Reported) Ranitidine HCl 150 Mg Tablet, 150 MG PO DAILY, (Reported) Patient Home Medication List Home Medication List Reviewed: Yes OB - History Hx of Present Care: Yes Ultrasounds: Normal mid trimester US Obstetrical Complications: None Medical Complications: None Delivery History Adverse Rxn to Tranfusion: No Patient Past Medical History No chronic medical problems Immunizations Hepatitis A: No Hepatitis B: No OB - Admission Exam Physical Exam HEENT: Moist Membranes Heart: Rhythm Normal Lungs: Clear Abdomen: Gravid Extremities: Normal Reflexes: Normal Cervical Dilatation: 4cm Effacement: 75% Station: -3 Membranes: Ruptured Amniotic Fluid: Clear Heart Rate: 140's Accelerations: Accelerations Present Decelerations: No Decelerations Short Term Variability: Present Custodial Variability: Average (6-25) Contractions on Admission: < 5 Minutes Apart Intensity: Moderate Labs Laboratory Tests Test 04/14/19 20:32 Range/Units White Blood Count 13.3 H 4.3-11.0 10^3/uL Red Blood Count 3.54 L 4.35-5.85 10^6/uL Hemoglobin 9.8 L 11.5-16.0 G/DL Hematocrit 30 L 35-52 % Mean Corpuscular Volume 85 80-99 FL Mean Corpuscular Hemoglobin 28 25-34 PG Mean Corpuscular Hemoglobin Concent 33 32-36 G/DL Red Cell Distribution Width 14.1 10.0-14.5 % Platelet Count 229 130-400 10^3/uL Mean Platelet Volume 10.6 H 7.4-10.4 FL Neutrophils (%) (Auto) 74 42-75 % Lymphocytes (%) (Auto) 19 12-44 % Monocytes (%) (Auto) 7 0-12 % Eosinophils (%) (Auto) 0 0-10 % Basophils (%) (Auto) 0 0-10 % Neutrophils # (Auto) 9.8 H 1.8-7.8 X 10^3 Lymphocytes # (Auto) 2.5 1.0-4.0 X 10^3 Monocytes # (Auto) 0.9 0.0-1.0 X 10^3 Eosinophils # (Auto) 0.1 0.0-0.3 10^3/uL Basophils # (Auto) 0.0 0.0-0.1 10^3/uL OB - Assessment/Plan/Diagnosis Assessment Assessment: rupture of membranes (at 38 weeks gestation) Admission Dx 1. IUP at 38 weeks with SROM Admission Status: Inpatient Order (span 2 midnights) Reason for Inpatient Admission: L&D Plan Plan: Expectant Management Other Plan -epidural per patients request GEENA ESPINOSA MD Apr 14, 2019 23:57
[2019-04-15] VITALS (17 sets, daily range): BP systolic 111–191; BP diastolic 74–123
[2019-04-15] MEDS ORDERED: ONDANSETRON 4 MG/2 ML (SDV) Z0FRAN IV ONE
[2019-04-15] MEDS ORDERED: LACTATED RINGERS 1,000 ML IV SCH
[2019-04-15] MEDS ORDERED: OXYTOCIN/NORMAL SALINE 500 ML IV ONE (00:25)
[2019-04-15] MEDS ORDERED: meTOprolol 5 MG/5 ML (LOPRESSOR) VIAL ONE (00:31)
[2019-04-15] MEDS ORDERED: OXYTOCIN/NORMAL SALINE 500 ML IV SCH (00:43)
[2019-04-15] MEDS ORDERED: KETOROLAC 30 MG/ML VIAL ONE (00:44)
[2019-04-15] MEDS ORDERED: TETANUS,DIPTH,PERTUSS P/F (BOOSTRIX) 0.5 ML VIAL IM ONE (00:45)
[2019-04-15] MEDS ORDERED: BENZOCAINE/MENTHOL (DERMOPLAST) 56 ML CAN TP PRN (00:45)
[2019-04-15] MEDS ORDERED: WITCH HAZEL(TUCKS) 40 EA JAR TOP PRN (00:45)
[2019-04-15] MEDS ORDERED: MEASLES,MUMPS,RUBELLA 1 EA INJ SQ ONE (00:45)
--- NOTE | 2019-04-15 00:49 | OB Labor & Delivery Record ---
L&D History Date of Service Date of Service: Apr 15, 2019 History Expected Date of Delivery: Apr 28, 2019 Gestational Age in Weeks: 38 Hx : 2 Hx Para: 2 Complications Events: Routine care Operative Indications (Cesarea: N/A-Vaginal Delivery Intrapartal Events: None Other Complications GBS positive. Received 1 dose of ampicillin L&D Stage1 Stage One Onset of Labor - Date: Apr 14, 2019 Onset of Labor - Time: 12:00 Monitors and Tracing Monitor Mode: External Monitor Accelerations: Uniform Monitor Decelerations: None Station: -3 Halfway Variability: Average (6-10) Short Term Variability: Present Presentation: Vertex Signs of Distress by FHT Signs of Distress no Rupture of Membranes Spontaneous Ruture of Membrane: Yes Amniotic Membrane Rupture Time: 12:00 Amniotic Membrane Fluid Desc.: Clear Vaginal Bleeding Description: None Induction/Anesthesia Epidural Cath Placement - Time: 00:15 L&D Stage2 Stage Two Stage II Date: Apr 15, 2019 Stage II Time: 00:20 Monitors and Tracing Monitor Mode: External Monitor Accelerations: Uniform Monitor Decelerations: Variable Childcare Center Director Variability: Average (6-10) Short Term Variability: Present Position: Left Occiput Anterior Presentation: Vertex Signs of Distress by FHT Signs of Distress no Cord Descript/Complications Cord Vessel Description: 3 Vessels Delivery Type Infant Delivery Method: Spontaneous Vaginal Anterior Shoulder: Left Episiotomy/Perineal Laceration Episiotomy Description: Midline Sutures Used: Vicryl Condition of Delivery 1 minute Comment: 8 5 minute Comment: 9 Condition of Condition of Infant: Living Exam: No Observed Abnormalities Resuscitation Resuscitation: N/A - Spontaneous Resp L&D Stage3 Stage Three Stage III Date: Apr 15, 2019 Stage III Time: 00:24 Pictocin Pitocin ml/hr: 125 Placenta Delivery Placenta Delivery: Spontaneous Delivery Summary Summary Estimated blood loss (mL): 200 Condition of Delivery Examined: Cervix Examined Post Hemorrhage: No Intervention Required none GEENA ESPINOSA MD Apr 15, 2019 00:49
[2019-04-15] MEDS ORDERED: KETOROLAC 30 MG/ML VIAL IV ONE (00:50)
[2019-04-15] MEDS ORDERED: AMPICILLIN FOR IV USE 1,000 MG in WATER (STERILE) FOR INJECTION 7.4 ML IV SCH (01:15)
--- NOTE | 2019-04-15 02:15 | NUR ---
VSS. LOCHIA LIGHT TO MODERATE. PT AMB TO BATHROOM AND VOIDS WITH NO DIFFICULTY. PERICARE COMPLETED. ICE PACK PLACED. PT THEN WISHES TO AMBULATE TO ROOM. MAGGIE WELL.
--- NOTE | 2019-04-15 05:30 | NUR ---
PT HAS BEEN RESTING. AWAKENED AND NEEDED BED PAD CHANGED AFTER SLEEPING AND MISPLACEMENT OF PAD. PT PASSED SMALL CLOT AT THIS TIME. NO INCREASE IN LOCHIA AFTER PASSED.
[2019-04-15] MEDS ORDERED: CATHETER FLUSH 10 ML SYR IV SCH (06:00)
[2019-04-15] MEDS: IBUPROFEN 600 MG (MOTRIN) TAB PO SCH ×4 (07:22→23:50)
--- NOTE | 2019-04-15 07:25 | NUR ---
REPORT TO NEXT SHIFT. MOTRIN ADMINISTERED FOR ABD CRAMPING.
[2019-04-15] MEDS: ACETAMINOPHEN 500 MG TAB (TYLENOL) PO SCH ×2 (12:12→21:09)
[2019-04-15] MEDS: DOCUSATE SODIUM 100 MG (COLACE) CAP PO SCH (12:12)
[2019-04-15] MEDS: PRENATAL VITAMIN 1 EA TAB PO SCH (12:12)
--- NOTE | 2019-04-15 19:40 | NUR ---
Pt awake in bed, holding . Family member at side. POC discussed, pt verbalized understanding. Assessment performed, VS taken. See interventions for details. Pt denies any concerns at time.
--- NOTE | 2019-04-15 20:10 | Anesthesia-Regional Post-Op ---
Regional Patient Condition Mental Status: Alert, Oriented x3 Circulation: Same as Pre-Op Headache: Absent Sensation: Full Recovery Motor Block: Absent Post Op Complications Complications None Follow Up Care/Instructions Patient Instructions None needed. Anesthesia/Patient Condition Patient is doing well, no complaints, stable vital signs, no apparent adverse anesthesia problems. No complications reported per nursing. PEDRO ELENA CRNA Apr 15, 2019 20:10
[2019-04-16 05:33] LABS: BASOPHILS % (AUTO) 0 % (0-10); EOSINOPHILS # (AUTO) 0.1 10^3/uL (0.0-0.3); EOSINOPHILS % (AUTO) 1 % (0-10); HEMATOCRIT 28 % (35-52); HEMOGLOBIN 8.9 G/DL (11.5-16.0); LYMPHOCYTES # (AUTO) 2.5 X 10^3 (1.0-4.0); LYMPHOCYTES % (AUTO) 20 % (12-44); MEAN CORPUSCULAR HEMOGLOBIN 27 PG (25-34); MEAN CORPUSCULAR HGB CONC 32 G/DL (32-36); MEAN CORPUSCULAR VOLUME 85 FL (80-99); MEAN PLATELET VOLUME 9.5 FL (7.4-10.4); MONOCYTES # (AUTO) 0.7 X 10^3 (0.0-1.0); MONOCYTES % (AUTO) 5 % (0-12); NEUTROPHILS # (AUTO) 9.5 X 10^3 (1.8-7.8); NEUTROPHILS % (AUTO) 74 % (42-75); PLATELET COUNT 210 10^3/uL (130-400); RED CELL DISTRIBUTION WIDTH 14.3 % (10.0-14.5); WHITE BLOOD COUNT 12.8 10^3/uL (4.3-11.0)
[2019-04-16] MEDS: IBUPROFEN 600 MG (MOTRIN) TAB PO SCH ×2 (05:47→13:04)
[2019-04-16 05:49] VITALS: BP 129/76
[2019-04-16] MEDS ORDERED: IBUP-844 PO (07:30)
--- NOTE | 2019-04-16 07:30 | NUR ---
DR. ESPINOSA HERE TO SEE PT. PLAN FOR DISCHARGE.
--- NOTE | 2019-04-16 07:31 | Discharge Inst-Women's Service ---
Discharge Inst-Women's Serv Depart Medication/Instructions New, Converted or Re-Newed RX: Call to Patients Pharmacy ([facility]) Problems Reviewed?: Yes Consults/Follow Up Additional Follow Up: Yes (Dr Espinosa in 6 weeks.) Activity Activity: Activity as Tolerated Driving Instructions: No Driving for 1 Week Nothing Inside Vagina: No [place] (for 6 weeks.) Diet Discharge Diet: Regular Diet Return to The Hospital For: as below Symptoms to Report to : Bleeding Excessive, Fever Over 101 Degrees F, Vag inal Discharge Foul For Any Problems or Questions: Contact Your Physician GEENA ESPINOSA MD Apr 16, 2019 07:31
--- NOTE | 2019-04-16 07:37 | Discharge Summary ---
Diagnosis/Chief Complaint Date of Admission Apr 14, 2019 at 19:45 Date of Discharge April 16, 2019 Admission Diagnosis Admission Diagnosis 1. Intrauterine at 38 weeks gestation 2. Iron deficiency anemia Discharge Diagnosis 1. Intrauterine at 38 weeks gestation 2. Iron deficiency anemia Chief Complaint/HPI Chief Complaint/HPI 24-year-old 2 now T2L2 who initially presented to labor and delivery during the late p.m. of April 14, 2019 in labor. She was noted to have spontaneous rupture of membranes and she does relate a history of leaking beginning around noon on April 14. Her GBS status is positive. Upon presentation she was immediately put on ampicillin protocol. Her due date was noted to be April 28, 2019. Her care was obtained through [facility] and essentially unremarkable. Discharge Summary-OBS Procedures 1. Epidural per anesthesia 2. Spontaneous vaginal delivery 3. Repair of midline episiotomy Discharge Physical Examination Allergies: Coded Allergies: No Known Drug Allergies (Unverified , 06/11/16) Vitals & I&Os Vital Sign - Last 12Hours Date Time Temp Pulse Resp B/P (MAP) Pulse Ox O2 Delivery O2 Flow Rate FiO2 04/16/19 05:49 36.5 62 18 129/76 (93) 98 04/15/19 18:40 Room Air General Appearance: No Acute Distress Respiratory: Clear to Auscultation Cardiovascular: Regular Rate Abdominal: Normal Bowel Sounds, Soft (With uterus firm) Neuro: Normal Speech Hospital Course Was the Problem List Reviewed?: Yes Following admission patient underwent epidural per anesthesia since she was at 5 cm dilated with gross rupture membranes. After placement of epidural she was noted to be dilated to completion. At this point she was allowed to push and delivered over a midline episiotomy a term viable male. received Apgars of 8 at 1 minute and 9 at 5 minutes. See labor and delivery summary for full details. Following delivery patient underwent routine via [facility] care orders. She had no complications during the remainder of hospital stay. She had few blood pressure elevated recordings but prior to dismissal she was normotensive. She had hemoglobin the day after delivery on April 16, 2019 of 8.9 compared to admission of 9.8. She was without dizziness or lightheadedness. Patient was tolerating regular diet and was felt ready for dismissal in the morning of April 16, 2019. All questions answered and she will follow up in 6 weeks. Labs Laboratory Tests 04/16/19 05:15: White Blood Count 12.8H, Red Blood Count 3.30L, Hemoglobin 8.9L, Hematocrit 28L, Mean Corpuscular Volume 85, Mean Corpuscular Hemoglobin 27, Mean Corpuscular Hemoglobin Concent 32, Red Cell Distribution Width 14.3, Platelet Count 210, Mean Platelet Volume 9.5, Neutrophils (%) (Auto) 74, Lymphocytes (%) (Auto) 20, Monocytes (%) (Auto) 5, Eosinophils (%) (Auto) 1, Basophils (%) (Auto) 0, Neutrophils # (Auto) 9.5H, Lymphocytes # (Auto) 2.5, Monocytes # (Auto) 0.7, Eosinophils # (Auto) 0.1, Basophils # (Auto) 0.0 Discharge Instructions to patient/family Please see electronic discharge instructions given to patient. Discharge Medications Reviewed and agree with Discharge Medication list on patient's Discharge Instruction sheet Clinical Quality Measures DVT/VTE Risk/Contraindication: Risk Factor Score Per Nursin RFS Level Per Nursing on Admit: 1=Low/No VTE PPX GEENA ESPINOSA MD Apr 16, 2019 07:37
[2019-04-16 08:00] VITALS: BP 126/78
--- NOTE | 2019-04-16 08:00 | NUR ---
A.M. ASSESSMENT COMPLETED. VSS. CARING FOR IN ROOM.
[2019-04-16] MEDS: DOCUSATE SODIUM 100 MG (COLACE) CAP PO SCH (08:50)
[2019-04-16] MEDS: PRENATAL VITAMIN 1 EA TAB PO SCH (08:50)
[2019-04-16] MEDS: ACETAMINOPHEN 500 MG TAB (TYLENOL) PO SCH (08:51)
--- NOTE | 2019-04-16 10:00 | NUR ---
CARING FOR INFANT IN ROOM. OFFERS NO COMPLAINTS.
--- NOTE | 2019-04-16 12:00 | NUR ---
CONTINUES TO DO WELL. PLAN FOR DISCHARGE TODAY.
[2019-04-16] MEDS ORDERED: FLU QUADRIvalent (5+ YOA) 2019-2020 (AFLURIA) 0.5 ML IM ONE ×2 (13:01→13:15)
[2019-04-16 13:30] VITALS: BP 134/83
--- NOTE | 2019-04-16 13:45 | NUR ---
DISCHARGE INSTRUCTIONS REVIEWED WITH COPY TO PT. STATES UNDERSTANDING OF ALL INSTRUCTIONS AND NEED TO F/U SCHEDULED AND NEEDED.
--- NOTE | 2019-04-16 14:00 | NUR ---
EATING LUNCH AND INFANT.
[2019-04-16 14:35] VITALS: BP 134/83
--- NOTE | 2019-04-16 14:35 | NUR ---
DISMISSED AMB FROM [facility] WITH IN STABLE CONDITION TO FAMILY CAR ACC BY MOTHER AND May FRANZ RN.
== END 2019-04-16 14:35 | disposition home or self-care (01) | DRG 807 ==
LOC: WSo 19:43 → LDRP 19:43 → WSo 20:53 → LDRP 04-15 01:20
PROVIDERS: ADMIT Family Medicine; ATTEND Family Medicine
PROC: 0W8NXZZ Division of Female Perineum, External Approach (ICD-10-PCS; principal; 2019-04-15)
PROC: 10E0XZZ Delivery of Products of Conception, External Approach (ICD-10-PCS; principal; 2019-04-15)
DX: O99.02 Anemia complicating childbirth (principal); Z37.0 Single live birth; D50.9 Iron deficiency anemia, unspecified; O99.824 Streptococcus B carrier state complicating childbirth; Z3A.38 38 weeks gestation of pregnancy
CPT/HCPCS: 36415; 85025; 86850; 86900; 86901; 99212

== ENCOUNTER 2022-11-11 13:28 | Outpatient (CLI) | payer MEDICAID ==
[~2022-11-11 13:28] MED LIST changes: +IBUP-844 PO; -RANI-515 PO; +RANI-609 PO
[2022-11-11 13:45] VITALS: BP 120/66
[2022-11-11 14:15] VITALS: BP 112/66
[2022-11-11 14:45] VITALS: BP 126/71
[2022-11-11 14:46] VITALS: BP 120/66
[2022-11-11] MEDS ORDERED: LACTATED RINGERS 1,000 ML IV ONE (15:00)
[2022-11-11 15:15] VITALS: BP 111/62
--- NOTE | 2022-11-12 08:06 | Physician Query-Final Dx ---
Clinic Account Progress/Dx Physician Query: Please give diagnosis Please include # weeks gestation Date of Service November 11, 2022 at 13:28 ,JunNovember 12, 2022 08:06
== END 2022-11-11 16:55 ==
LOC: LDRP 13:28 → WSo 13:28
PROVIDERS: ATTEND Family Medicine
DX: O99.891 Other specified diseases and conditions complicating pregnancy (principal); R11.2 Nausea with vomiting, unspecified; Z3A.38 38 weeks gestation of pregnancy
CPT/HCPCS: 96360; 99213

== ENCOUNTER 2023-01-11 21:59 | Inpatient (IN) | payer MEDICAID ==
[~2023-01-11] VITALS: Ht 165.1 cm; Wt 66.3 kg
[2023-01-11] MEDS ORDERED: LACTATED RINGERS 1,000 ML IV ONE (22:30)
[2023-01-11] MEDS ORDERED: MINERAL OIL 30 ML UDC TOP PRN (22:30)
[2023-01-11] MEDS ORDERED: MEPIVACAINE (CARBOCAINE) 2% 50 ML VIAL INJ PRN (22:30)
[2023-01-11] MEDS ORDERED: D5 LR 1,000 ML IV SOLN 1,000 ML IV SCH (22:30)
[2023-01-11 22:51] LABS: BASOPHILS % (AUTO) 0 % (0-10); EOSINOPHILS % (AUTO) 0 % (0-10); HEMATOCRIT 41 % (35-52); HEMOGLOBIN 14.4 g/dL (11.5-16.0); LYMPHOCYTES # (AUTO) 3.5 10^3/uL (1.0-4.0); LYMPHOCYTES % (AUTO) 27 % (12-44); MEAN CORPUSCULAR HEMOGLOBIN 30 pg (25-34); MEAN CORPUSCULAR HGB CONC 35 g/dL (32-36); MEAN CORPUSCULAR VOLUME 86 fL (80-99); MEAN PLATELET VOLUME 9.7 fL (9.0-12.2); MONOCYTES # (AUTO) 0.9 10^3/uL (0.0-1.0); MONOCYTES % (AUTO) 7 % (0-12); NEUTROPHILS # (AUTO) 8.5 10^3/uL (1.8-7.8); NEUTROPHILS % (AUTO) 66 % (42-75); PLATELET COUNT 286 10^3/uL (130-400)
[2023-01-11] MEDS ORDERED: METHYLERGONOVINE 0.2 MG/ML (METHERGINE) AMP ONE (22:59)
[2023-01-11] MEDS ORDERED: CARBOPROST 250 MCG/ML 1 ML AMPULE IM ONE (22:59)
[2023-01-11] MEDS ORDERED: OXYTOCIN PRE-MIX DRIP 500 ML IV ONE (22:59)
[2023-01-11 23:13] VITALS: BP 126/58
[2023-01-11] MEDS ORDERED: ONDANSETRON 4 MG/2 ML (SDV) Z0FRAN ONE (23:23)
[2023-01-11 23:31] VITALS: BP 145/83
--- NOTE | 2023-01-11 23:32 | History & Physical-OB ---
OB - Chief Complaint & HPI Date/Time Date of Admission: Date of Admission: Jan 11, 2023 at 22:20 Date seen by a Provider: Jan 11, 2023 Time Seen by a Provider: 22:50 Chief Complaint/History OB-Reason for Admission/Chief: Onset of Labor Hx : 3 Hx Para: 2 Expected Date of Delivery: Jan 25, 2023 Gestational Age in Weeks: 38 Admission Nurse Assessment Rev: Yes History of Labs GBS negative Allergies and Home Medications Allergies Coded Allergies: No Known Drug Allergies (Unverified , 06/11/16) Patient Home Medication List Home Medication List Reviewed: Yes Ferrous Sulfate (Iron) 325 Mg Tablet, 325 MG PO DAILY, (Reported) Entered as Reported by: JONO HUNT on 04/12/171738 Vit No.124/Iron/FA ( Vitamin Tablet) 1 Each Tablet, 1 EACH PO DAILY, (Reported) Entered as Reported by: ARIANNA MARTINEZ on 01/30/172154 Ranitidine HCl (Acid Chocolate Temperer (RANITIDINE)) 150 Mg Tablet, 150 MG PO DAILY, (Reported) Entered as Reported by: JONO HUNT on 04/12/171738 OB - History Hx of Present Care: Yes Ultrasounds: Normal mid trimester US Obstetrical Complications: None Delivery History Adverse Rxn to Tranfusion: No Patient Past Medical History No chronic medical problems Social History/Family History 2nd Hand Smoke Exposure: No Immunizations Hepatitis A: No Hepatitis B: No OB - Admission Exam Physical Exam HEENT: Moist Membranes Heart: Rhythm Normal Lungs: Clear Abdomen: Gravid Cervical Dilatation: 6cm Effacement: 75% Station: -3 Membranes: Intact Heart Rate: 130's Accelerations: Accelerations Present Decelerations: Early Decelerations Short Term Variability: Present Usp Variability: Average (6-25) Contractions on Admission: < 5 Minutes Apart Intensity: Moderate Labs Laboratory Tests Test 01/11/23 22:30 Range/Units White Blood Count 13.0 H 4.3-11.0 10^3/uL Red Blood Count 4.73 3.80-5.11 10^6/uL Hemoglobin 14.4 11.5-16.0 g/dL Hematocrit 41 35-52 % Mean Corpuscular Volume 86 80-99 fL Mean Corpuscular Hemoglobin 30 25-34 pg Mean Corpuscular Hemoglobin Concent 35 32-36 g/dL Red Cell Distribution Width 13.2 10.0-14.5 % Platelet Count 286 130-400 10^3/uL Mean Platelet Volume 9.7 9.0-12.2 fL Immature Granulocyte % (Auto) 1 % Neutrophils (%) (Auto) 66 42-75 % Lymphocytes (%) (Auto) 27 12-44 % Monocytes (%) (Auto) 7 0-12 % Eosinophils (%) (Auto) 0 0-10 % Basophils (%) (Auto) 0 0-10 % Neutrophils # (Auto) 8.5 H 1.8-7.8 10^3/uL Lymphocytes # (Auto) 3.5 1.0-4.0 10^3/uL Monocytes # (Auto) 0.9 0.0-1.0 10^3/uL Eosinophils # (Auto) 0.0 0.0-0.3 10^3/uL Basophils # (Auto) 0.0 0.0-0.1 10^3/uL Immature Granulocyte # (Auto) 0.1 0.0-0.1 10^3/uL Syphilis Total Antibody Negative Negative OB - Assessment/Plan/Diagnosis Assessment Assessment: active labor (at 38 weeks gestation) Admission Dx 1. IUP at term 38 weeks in active labor Admission Status: Inpatient Order (span 2 midnights) Reason for Inpatient Admission: L&D Plan Plan: Expectant Management Other Plan Eminent delivery GEENA ESPINOSA MD Jan 11, 2023 23:32
--- NOTE | 2023-01-11 23:36 | OB Labor & Delivery Record ---
L&D History Date of Service Date of Service: Jan 11, 2023 History Expected Date of Delivery: Jan 25, 2023 Gestational Age in Weeks: 38 Hx : 3 Hx Para: 3 Complications Events: Routine care Operative Indications (Cesarea: N/A-Vaginal Delivery Intrapartal Events: None L&D Stage1 Stage One Onset of Labor - Date: Jan 11, 2023 Onset of Labor - Time: 20:00 Monitors and Tracing Monitor Mode: External Monitor Accelerations: Uniform Monitor Decelerations: Variable Station: -3 Retirement Variability: Average (6-10) Short Term Variability: Present Presentation: Vertex Signs of Distress by FHT Signs of Distress no Rupture of Membranes Spontaneous Ruture of Membrane: No Amniotic Membrane Rupture Time: 23:05 Amniotic Membrane Fluid Desc.: Meconium Stained Induction/Anesthesia Medications none L&D Stage2 Stage Two Stage II Date: Jan 11, 2023 Stage II Time: 23:09 Monitors and Tracing Monitor Mode: External Monitor Accelerations: Uniform Monitor Decelerations: Variable [employer] Variability: Average (6-10) Short Term Variability: Present Position: Left Occiput Anterior Presentation: Vertex Signs of Distress by FHT Signs of Distress no Cord Descript/Complications Cord Vessel Description: 3 Vessels Delivery Type Infant Delivery Method: Spontaneous Vaginal Anterior Shoulder: Left Episiotomy/Perineal Laceration Laceraction(s)/Extensions: No Episiotomy Description: Periurethral Extnsion/lac (minor on R) Condition of Infant Delivery 1 minute Comment: 8 5 minute Comment: 9 Condition of Condition of Infant: Living Exam: No Observed Abnormalities Resuscitation Resuscitation: N/A - Spontaneous Resp L&D Stage3 Stage Three Stage III Date: Jan 11, 2023 Stage III Time: 23:15 Placenta Delivery Placenta Delivery: Spontaneous Delivery Summary Summary Estimated blood loss (mL): 150 Condition of Delivery Examined: Cervix Examined Post Hemorrhage: No Intervention Required none GEENA ESPINOSA MD Jan 11, 2023 23:36
[2023-01-11] MEDS ORDERED: MEASLES,MUMPS,RUBELLA 1 EA INJ SQ ONE (23:45)
[2023-01-11] MEDS ORDERED: WITCH HAZEL(TUCKS) 40 EA JAR TOP PRN (23:45)
[2023-01-11] MEDS ORDERED: TETANUS,DIPTH,PERTUSS P/F (BOOSTRIX) 0.5 ML VIAL IM ONE (23:45)
[2023-01-11] MEDS ORDERED: NALOXONE 0.4 MG/ML 1 ML (NARCAN) VIAL IV PRN (23:45)
[2023-01-11] MEDS ORDERED: ONDANSETRON 4 MG/2 ML (SDV) Z0FRAN IVP ONE (23:45)
[2023-01-11] MEDS ORDERED: BENZOCAINE/MENTHOL (DERMOPLAST) 56 ML CAN TP PRN (23:45)
[2023-01-11] MEDS ORDERED: OXYTOCIN PRE-MIX DRIP 500 ML IV SCH (23:45)
[2023-01-11 23:46] VITALS: BP 153/65
[2023-01-12] VITALS (8 sets, daily range): BP systolic 108–137; BP diastolic 58–82
[2023-01-12] MEDS: IBUPROFEN 600 MG (MOTRIN) TAB PO SCH ×4 (02:07→20:59)
[2023-01-12] MEDS: ACETAMINOPHEN 500 MG TABLET PO SCH ×4 (02:07→20:59)
[2023-01-12] MEDS ORDERED: CATHETER FLUSH 10 ML SYR IV SCH ×2 (06:00)
[2023-01-12 06:35] LABS: BASOPHILS % (AUTO) 0 % (0-10); EOSINOPHILS % (AUTO) 0 % (0-10); HEMATOCRIT 35 % (35-52); HEMOGLOBIN 12.3 g/dL (11.5-16.0); LYMPHOCYTES # (AUTO) 1.6 10^3/uL (1.0-4.0); LYMPHOCYTES % (AUTO) 10 % (12-44); MEAN CORPUSCULAR HEMOGLOBIN 31 pg (25-34); MEAN CORPUSCULAR HGB CONC 35 g/dL (32-36); MEAN CORPUSCULAR VOLUME 88 fL (80-99); MONOCYTES # (AUTO) 0.8 10^3/uL (0.0-1.0); MONOCYTES % (AUTO) 5 % (0-12); NEUTROPHILS # (AUTO) 13.7 10^3/uL (1.8-7.8); NEUTROPHILS % (AUTO) 85 % (42-75); PLATELET COUNT 209 10^3/uL (130-400); WHITE BLOOD COUNT 16.2 10^3/uL (4.3-11.0)
[2023-01-12] MEDS: DOCUSATE SODIUM 100 MG CAPSULE PO SCH ×2 (08:42→20:59)
[2023-01-12] MEDS: ONDANSETRON 4 MG (ZOFRAN) ORAL DISSOLVE TAB PO PRN ×2 (09:32→17:42)
--- NOTE | 2023-01-12 17:45 | Progress Note ---
Subjective Subjective/Events-last exam she is doing well with no complaints. No significant abnormal bleeding. Cramping is minimal. Objective Exam Last Set of Vital Signs Vital Signs Date Time Temp Pulse Resp B/P (MAP) Pulse Ox O2 Delivery O2 Flow Rate FiO2 01/12/23 17:32 36.7 66 18 120/66 (84) 97 Room Air Capillary Refill : I&O Intake and Output 01/12/23 00:00 Intake Total 1000 ml Balance 1000 ml Intake IV Total 1000 ml Blood Loss Quantification Method 150 ml Daily Weight Change Yes, 2-13 lbs General: Alert, No Acute Distress Abdomen: Soft (With uterus firm) Results/Procedures Lab Laboratory Tests 01/11/23 22:30: White Blood Count 13.0H, Red Blood Count 4.73, Hemoglobin 14.4, Hematocrit 41, Mean Corpuscular Volume 86, Mean Corpuscular Hemoglobin 30, Mean Corpuscular Hemoglobin Concent 35, Red Cell Distribution Width 13.2, Platelet Count 286, Mean Platelet Volume 9.7, Immature Granulocyte % (Auto) 1, Neutrophils (%) (Auto) 66, Lymphocytes (%) (Auto) 27, Monocytes (%) (Auto) 7, Eosinophils (%) (Auto) 0, Basophils (%) (Auto) 0, Neutrophils # (Auto) 8.5H, Lymphocytes # (Auto) 3.5, Monocytes # (Auto) 0.9, Eosinophils # (Auto) 0.0, Basophils # (Auto) 0.0, Immature Granulocyte # (Auto) 0.1, Syphilis Total Antibody Negative 01/12/23 05:56: White Blood Count 16.2H, Red Blood Count 3.99, Hemoglobin 12.3, Hematocrit 35, Mean Corpuscular Volume 88, Mean Corpuscular Hemoglobin 31, Mean Corpuscular Hemoglobin Concent 35, Red Cell Distribution Width 13.2, Platelet Count 209, Mean Platelet Volume 10.0, Immature Granulocyte % (Auto) 0, Neutrophils (%) (Auto) 85H, Lymphocytes (%) (Auto) 10L, Monocytes (%) (Auto) 5, Eosinophils (%) (Auto) 0, Basophils (%) (Auto) 0, Neutrophils # (Auto) 13.7H, Lymphocytes # (Auto) 1.6, Monocytes # (Auto) 0.8, Eosinophils # (Auto) 0.0, Basophils # (Auto) 0.0, Immature Granulocyte # (Auto) 0.1 Assessment/Plan Assessment/Plan Assessment & Plan 1. Term intrauterine at 38 weeksdelivered spontaneous vaginal -Routine care orders -Suspect home in the morning of January 13, 2023 GEENA ESPINOSA MD Jan 12, 2023 17:45
[2023-01-13 00:39] VITALS: BP 96/55
[2023-01-13] MEDS: ACETAMINOPHEN 500 MG TABLET PO SCH ×2 (03:11→08:48)
[2023-01-13] MEDS: IBUPROFEN 600 MG (MOTRIN) TAB PO SCH ×2 (03:11→08:47)
[2023-01-13 05:25] VITALS: BP 100/58
[2023-01-13 06:25] VITALS: BP 113/74
--- NOTE | 2023-01-13 07:02 | Discharge Summary ---
Diagnosis/Chief Complaint Date of Admission Jan 11, 2023 at 22:20 Date of Discharge January 13, 2023 Admission Diagnosis Admission Diagnosis 1. Intrauterine at term 38 weeks gestation Discharge Diagnosis 1. Intrauterine at term 38 weeks gestation Chief Complaint/HPI Chief Complaint/HPI 28-year-old 3 now term 3 L3 January 11, 2023 in active labor. Upon presentation she was noted to be 6 cm dilated with membranes intact. Her care was obtained through [facility] and essentially unremarkable. Her group B strep status at 36 weeks was noted to be negative. Discharge Summary-OBS Procedures 1. Spontaneous vaginal delivery Discharge Physical Examination Allergies: Coded Allergies: No Known Drug Allergies (Unverified , 06/11/16) Vitals & I&Os Vital Sign - Last 12Hours Date Time Temp Pulse Resp B/P (MAP) Pulse Ox O2 Delivery O2 Flow Rate FiO2 01/13/23 06:25 36.0 65 18 113/74 (87) 100 Room Air General Appearance: Alert, No Acute Distress Respiratory: Clear to Auscultation Cardiovascular: Regular Rate Abdominal: Soft (With uterus firm) Psych/Mental Status: Mental Status NL Hospital Course Was the Problem List Reviewed?: Yes following admission she underwent routine antepartum care orders. She quickly went on to completion. Artificial rupture of membranes was performed and shortly afterwards she delivered a term viable male. Delivery was accomplished spontaneous vaginal and infant received Apgars of 8 at 1 minute and 9 at 5 minutes. There was no episiotomy performed on mother. She did have a minor right-sided periurethral tear. Following delivery she underwent routine care orders. There was no complications during the remainder of hospital stay. Her hemoglobin in the morning of January 12 was 12.3 compared to admission of 14.4. She was noted to tolerate regular diet. She had no chest pain or leg pain. Ultimately she was felt ready for dismissal in the morning of January 13, 2023 and she will follow-up with myself in 6 weeks at [facility]. Discharge Instructions to patient/family Please see electronic discharge instructions given to patient. Discharge Medications Reviewed and agree with Discharge Medication list on patient's Discharge Instruction sheet GEENA ESPINOSA MD Jan 13, 2023 07:02
--- NOTE | 2023-01-13 07:04 | Discharge Inst-Women's Service ---
Discharge Inst-Women's Serv Depart Medication/Instructions New, Converted or Re-Newed RX: Other Instructions May take ibuprofen 200 mg [id number] tablets, 2 or 3 every 6 hours if needed for cramps or discomfort. Problems Reviewed?: Yes Consults/Follow Up Additional Follow Up: Yes (Dr. Espinosa in 6 weeks at [facility]) Diet Discharge Diet: Regular Diet Return to The Hospital For: As below Symptoms to Report to : Bleeding Excessive, Fever Over 101 Degrees F, Vaginal Discharge Foul For Any Problems or Questions: Contact Your Physician GEENA ESPINOSA MD Jan 13, 2023 07:04
[2023-01-13 08:15] VITALS: BP 122/79
[2023-01-13] MEDS: DOCUSATE SODIUM 100 MG CAPSULE PO SCH (08:46)
[2023-01-13 11:30] VITALS: BP 122/79
== END 2023-01-13 11:30 | disposition home or self-care (01) | DRG 807 ==
LOC: WSo 21:59 → LDRP 22:00 → WSo 22:22 → LDRP 01-12
PROVIDERS: ADMIT Family Medicine; ATTEND Family Medicine
PROC: 10E0XZZ Delivery of Products of Conception, External Approach (ICD-10-PCS; principal; 2023-01-11)
PROC: 10907ZC Drainage of Amniotic Fluid, Therapeutic from Products of Conception, Via Natural or Artificial Opening (ICD-10-PCS; 2023-01-11)
DX: O77.0 Labor and delivery complicated by meconium in amniotic fluid (principal); Z37.0 Single live birth; O71.82 Other specified trauma to perineum and vulva; Z3A.38 38 weeks gestation of pregnancy
CPT/HCPCS: 36415; 85025; 86780; 86850; 86900; 86901; 99212